=== PATIENT | male | born 1980 | race Caucasian/White ===

== ENCOUNTER 2020-11-07 09:51 | Inpatient (IN) | payer MEDICARE, OTHER ==
[~2020-11-07] VITALS: Ht 175.3 cm; Wt 117.7 kg
[2020-11-07] MEDS: SERTRALINE 100 MG TAB PO SCH (09:00)
[2020-11-07 12:22] LABS: HEMATOCRIT 46.3 % (42.0-52.0); HEMOGLOBIN 15.7 g/dl (13.5-17.5); MEAN CORPUSCULAR HEMOGLOBIN 29.2 pg (27.0-33.0); MEAN CORPUSCULAR HGB CONC 33.9 g/dl (32.0-36.5); MEAN CORPUSCULAR VOLUME 86.2 fl (80.0-96.0); PLATELET COUNT, AUTOMATED 261 10^3/uL (150-450); RED BLOOD COUNT 5.37 10^6/uL (4.30-6.10); WHITE BLOOD COUNT 9.7 10^3/uL (4.0-10.0)
[2020-11-07 12:23] LABS: AMPHETAMINES LEVEL URINE NEGATIVE (NEGATIVE); BARBITURATES URINE NEGATIVE (NEGATIVE); BENZODIAZEPINES URINE NEGATIVE (NEGATIVE); CANNABINOIDS URINE POSITIVE (NEGATIVE); COCAINE METABOLITE URINE NEGATIVE (NEGATIVE); METHADONE URINE NEGATIVE (NEGATIVE); OPIATES URINE NEGATIVE (NEGATIVE); PHENCYCLIDINE URINE NEGATIVE (NEGATIVE)
[2020-11-07 13:01] LABS: ACETAMINOPHEN LEVEL < 2.0 UG/ML (10.0-30.0); ALBUMIN 4.8 GM/DL (3.2-5.2); ALT/SGPT 37 U/L (12-78); BILIRUBIN,DIRECT 0.3 MG/DL (0.0-0.2); BILIRUBIN,TOTAL 1.1 MG/DL (0.2-1.0); BLOOD UREA NITROGEN 16 MG/DL (7-18); CALCIUM LEVEL 9.6 MG/DL (8.5-10.1); CARBON DIOXIDE LEVEL 25 MEQ/L (21-32); CHLORIDE LEVEL 107 MEQ/L (98-107); CREATININE FOR GFR 0.91 MG/DL (0.70-1.30); ETHYL ALCOHOL (ETHANOL) < 0.003 % (0.000-0.010); GLOMERULAR FILTRATION RATE > 60.0 (>60); GLUCOSE, FASTING 81 MG/DL (70-100); POTASSIUM SERUM 3.9 MEQ/L (3.5-5.1); SALICYLATE LEVEL < 1.7 MG/DL (5.0-30.0); SODIUM LEVEL 140 MEQ/L (136-145); TOTAL PROTEIN 8.8 GM/DL (6.4-8.2)
[2020-11-07] MEDS ORDERED: ZOLO100T PO (13:24)
[2020-11-07] MEDS ORDERED: D3 +TAB PO (13:24)
[2020-11-07] MEDS ORDERED: QUET50TA3 PO (13:24)
[2020-11-07] MEDS ORDERED: QUET100T2 PO (13:24)
[2020-11-07] MEDS ORDERED: MELA3TAB29 PO (13:24)
[2020-11-07] MEDS ORDERED: HYDR-3363 PO (13:24)
[2020-11-07] MEDS ORDERED: PREG200C PO (13:24)
[2020-11-07] MEDS ORDERED: DULO1CAP6 PO (13:24)
--- NOTE | 2020-11-07 13:56 | REP ---
INDICATION: puhnched all. COMPARISON: None. TECHNIQUE: Four views of the right hand are provided. FINDINGS: Four views of the right hand demonstrate normal bones, joints, and soft tissues. No fracture or subluxation is seen. No opaque foreign body noted. IMPRESSION: Negative right hand series. <Electronically signed by Prieto Dillard > 11/07/20 [id number]
[2020-11-07] MEDS ORDERED: MAALOX 30 ML SUSP *UDC PO PRN (15:30)
[2020-11-07] MEDS ORDERED: ACETAMINOPHEN TAB 650MG DOSE (2X325MG) PO PRN (15:30)
[2020-11-07] MEDS ORDERED: D31000TA2 PO (16:24)
[2020-11-07 16:43] LABS: RSV AMPLIFICATION NEGATIVE (NEGATIVE)
[2020-11-07 17:59] VITALS: BP 126/76
[2020-11-07] MEDS: PREGABALIN 100 MG CAP (LYRICA) PO SCH (20:30)
[2020-11-07] MEDS: traZODone 50 MG TAB PO PRN (20:30)
[2020-11-07] MEDS: QUEtiapine FUMARATE 50MG TAB PO SCH (20:30)
[2020-11-07] MEDS: hydrOXYzine 25 MG TAB PO SCH (20:30)
[2020-11-08 07:12] VITALS: BP 155/98
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
[2020-11-08] MEDS: SERTRALINE 100 MG TAB PO SCH (08:37)
[2020-11-08] MEDS: QUEtiapine FUMARATE 50MG TAB PO SCH ×2 (08:37→20:59)
[2020-11-08] MEDS: PREGABALIN 100 MG CAP (LYRICA) PO SCH ×3 (08:37→20:59)
[2020-11-08] MEDS: hydrOXYzine 25 MG TAB PO SCH ×3 (08:37→20:59)
[2020-11-08] MEDS: VITAMIN D 1,000 INTERNATIONAL UNITS TABLET PO SCH (08:37)
--- NOTE | 2020-11-08 12:58 | HPEPDOC ---
[facility] Medical History & Physical Date of Admission Nov 07, 2020 Date of Service: Nov 08, 2020 History and Physical MEDICAL H&P HISTORY OF PRESENT ILLNESS: Patient is a 40-year-old male with past medical history of PTSD, chronic pain, anxiety, insomnia who presented to [facility] emergency room after having delusional thoughts, visual hallucinations. He is also had a decreased sleep pattern. The patient states he has become very in tune with "time" and has been meditating a lot more. He states he has recently gotten into meditating and praying a particular type of medication that is done in [place]. He is upset with the concept of time slowing down and spoke of it frequently during our interaction. He has a history of delusions but no admissions to mental health facilities. On exam today the patient had no acute medical findings which were of concern but he did speak a lot of the concept of time slowing down and states that "people do not understand what I'm trying to tell them". He spoke of watching the sun setting and rising daily. The patient denies chest pain, shortness of breath, nausea, vomiting, fevers, chills, weight loss, suicidal or homicidal ideation, agitation, anxiety. REVIEW OF SYSTEMS: Neg except mentioned above PAST MEDICAL HISTORY: PTSD, chronic pain, anxiety, insomnia, autoimmune d/o (specific one not known) PAST SURGICAL HISTORY: appendectomy Right ORIF FAMILY HISTORY: Father: Healthy. Alive Mother: Healthy. alive SOCIAL HISTORY: Smokes medical marijuana only, denies nicotine use. Denies illicit drug or alcohol use. Currently unemployed, prior , disabled. Lives with and children. Follows with [place] for medical needs. ALLERGIES: Please see below. HOME MEDICATIONS: Please see below. PHYSICAL EXAMINATION: VS: please see below CONSTITUTIONAL: No acute distress, resting comfortably, AAO x 3 EYES: PERRLA, EOM intact HENT, MOUTH: Normocephalic, atraumatic, moist mucous membranes NECK: SUPPLE, no JVD, no lymphadenopathy, no carotid bruit CV: Regular rate and rhythm, S1S2 normal, no murmurs/rubs/gallops RESPIRATORY: Clear to auscultation bilaterally, no rales/rhonchi/wheezes GI: BS positive in 4 quadrants, soft, nontender, nondistended, no rebound or guarding, no organomegaly : Deferred MUSCULOSKELETAL: Normal ROM. No cyanosis, clubbing, swelling, joint deformity, extremity edema INTEGUMENTARY: Intact, no rashes, no lesions, no erythema NEUROLOGIC: Cranial Nerves II-XII are intact, no focal deficits PSYCHIATRIC: Mood and affect are normal LABORATORY DATA: Please see below IMAGING: None ASSESSMENT: 40 y/o M admitted to [facility] for depression, risk for suicide. PLAN: Depression, risk for suicide -Plan per psychiatry team Chronic back and hand pain 2/2 to autoimmune d/o -Stable -States he has a history of autoimmune disorders (unknown specifically by him) -Followed for pain by PCP -At this time, with us not having actual med list, will suggest c/w tylenol PRN PTSD / anxiety/ insomnia -Plan per psych DISPOSITION: Thank you kindly for this consult. At this time will sign off, as other chronic issues aside from psychiatric illness are stable. If we are needed to reassess again please feel free to call at any time. Vital Signs Vital Signs Date Time Temp Pulse Resp B/P (MAP) Pulse Ox O2 Delivery O2 Flow Rate FiO2 11/08/20 09:41 Room Air 11/08/20 07:12 96.4 121 20 155/98 (117) 99 Laboratory Data Labs 24H Laboratory Tests 2 11/07/20 15:51: Coronavirus (COVID-19)(PCR) NEGATIVE, Influenza Type A (RT-PCR) NEGATIVE, Influenza Type B (RT-PCR) NEGATIVE, Respiratory Syncytial Virus (PCR) NEGATIVE Home Medications Scheduled Cholecalciferol (Vitamin D3) (Vitamin D3) 1,000 Unit Tablet, 1,000 UNITS PO DAILY Duloxetine Hcl (Duloxetine HCl) 60 Mg Capsule.dr, 60 MG PO BID Pregabalin (Pregabalin) 200 Mg Capsule, 200 MG PO TID Quetiapine Fumarate (Quetiapine Fumarate) 50 Mg Tablet, 50 MG PO BID QAM, LUNCH Quetiapine Fumarate (Quetiapine Fumarate) 100 Mg Tablet, 100 MG PO QHS Sertraline Hcl (Zoloft) 100 Mg Tablet, 100 MG PO DAILY Scheduled PRN Hydroxyzine HCl (Hydroxyzine HCl) 25 Mg Tablet, 25 MG PO BID PRN for ANXIETY/AGITATION Melatonin (Melatonin) 3 Mg Tablet, 9 MG PO QHS PRN for SLEEP Allergies Coded Allergies: minocycline (Verified Adverse Reaction, Unknown, worsening joint pain, 11/07/20) A-FIB/CHADSVASC A-FIB History Current/History of A-Fib/PAF?: No Current PO Anticoag Therapy: No Age/Risk Factor Scoring CHADSVASC: CHADSVASC Response (Comments) Value Age Risk Factor Age < 65 years old 0 Gender Risk Factor Male 0 Hx of CHF No 0 Hx of HTN No 0 Hx of Stroke/TIA/or VTE No 0 Hx of Diabetes No 0 Hx of Vascular Disease No 0 Total 0 Treatment Treatment ordered: NONE Other anticoagulant ordered: none Merna Bejarano MD Nov 08, 2020 12:58
[2020-11-08 19:11] VITALS: BP 137/84
[2020-11-08] MEDS: traZODone 50 MG TAB PO PRN (20:59)
[2020-11-09 06:00] VITALS: BP 133/90
[2020-11-09] MEDS: PREGABALIN 100 MG CAP (LYRICA) PO SCH ×3 (08:59→21:16)
[2020-11-09] MEDS: hydrOXYzine 25 MG TAB PO SCH ×3 (09:00→21:16)
[2020-11-09] MEDS: VITAMIN D 1,000 INTERNATIONAL UNITS TABLET PO SCH (09:00)
[2020-11-09] MEDS: QUEtiapine FUMARATE 50MG TAB PO SCH (09:00)
[2020-11-09] MEDS: SERTRALINE 100 MG TAB PO SCH (09:00)
--- NOTE | 2020-11-09 10:19 | MHIPNPDOC ---
[facility] Progress Note Progress Note DATE OF SERVICE: 11/09/20 HISTORY: 40-year-old male with extensive change in behavior today tells me that time is slowing that the planets were lined up. He has been watching sunsets and sunrises. He states animals are acting weird. He states there will be a great astronomical event that we are not prepared for. He states the earth will change its rotation. He states he has watched and felt when he wants the planets. Pulses and he eats and thinks there'll be electromagnetic forces stealing her power. VITAL SIGNS: See below. NEW TEST RESULTS: None. CURRENT MEDICATIONS: See below. MENTAL STATUS EXAMINATION: Patient is a 40-year old male, who is, expressing numerous odd ideas and appare ntly has become delusional. Speech: Is, normal. Language skills are. No gross disturbance. Thought processes including: As above. Thought content: As above. Abstract reasoning, and computation: Not presently able to abstract well. Description of associations: No loose association. Description of abnormal or psychotic thoughts:. Psychotic thoughts as described above. Judgment:, Poor. Insight:, Limited. Orientation: 3. Recent and remote memory: Intact. Attention span and concentration: Disrupted by delusional thinking. Language: Intact. Fund of knowledge:. full Mood: Euthymic. Affect:, Congruent. DIAGNOSES: 1. Schizophrenia. 2., Rule out bipolar disorder with psychotic features. 3., None. ASSESSMENT: As above MANAGEMENT PLAN:, We will begin Zyprexa 10 mg. TIME SPENT: 30 minutes. Vital Signs Vital Signs Date Time Temp Pulse Resp B/P (MAP) Pulse Ox O2 Delivery O2 Flow Rate FiO2 11/09/20 08:41 Room Air 11/09/20 06:00 97.6 80 18 133/90 (104) 99 Current Medications Current Medications Medications (Trade) Dose Ordered Sig/Linwood Route PRN Reason Start Time Stop Time Status Last Admin Dose Admin Acetaminophen (Tylenol Tab) 650 mg Q6HP PRN PO HEADACHE or DISCOMFORT 11/07/20 15:30 Al Hydrox/Mg Hydrox/Simethicone (Mylanta) 30 ml Q4HP PRN PO HEARTBURN/INDIGESTION 11/07/20 15:30 Home Med (Med Rec Complete!) ASDIRECTED XX 11/07/20 16:30 11/07/20 16:39 DC Hydroxyzine HCl (Atarax) 25 mg TID PO 11/07/20 16:00 11/09/20 09:00 Magnesium Hydroxide (Milk Of Magnesia) 30 ml DAILYPRN PRN PO CONSTIPATION 11/07/20 15:30 Pregabalin (Lyrica) 200 mg TID PO 11/07/20 16:00 11/09/20 08:59 Quetiapine Fumarate (SEROquel) 50 mg QAM PO 11/08/20 09:00 11/09/20 09:00 Quetiapine Fumarate (SEROquel) 150 mg QPM PO 11/07/20 21:00 11/08/20 20:59 Sertraline HCl (Zoloft) 100 mg DAILY PO 11/07/20 09:00 11/09/20 09:00 Trazodone HCl (Desyrel) 50 mg QHSP PRN PO INSOMNIA 11/07/20 15:30 11/08/20 20:59 Vitamin D (Vitamin D) 1,000 units DAILY PO 11/08/20 09:00 11/09/20 09:00 Allergies Coded Allergies: minocycline (Verified Adverse Reaction, Unknown, worsening joint pain, 11/07/20) JAVIER CAICEDO MD Nov 09, 2020 10:19
[2020-11-09 18:03] VITALS: BP_SYST 143; BP_SYST 147; BP_DIAS 73; BP_DIAS 83
[2020-11-09] MEDS: OLANZapine 10 MG TAB PO SCH (21:16)
[2020-11-09] MEDS: traZODone 50 MG TAB PO PRN (21:16)
[2020-11-10 07:05] VITALS: BP 147/83
[2020-11-10] MEDS: SERTRALINE 100 MG TAB PO SCH (09:04)
[2020-11-10] MEDS: hydrOXYzine 25 MG TAB PO SCH ×3 (09:04→21:11)
[2020-11-10] MEDS: PREGABALIN 100 MG CAP (LYRICA) PO SCH ×3 (09:04→21:11)
[2020-11-10] MEDS: VITAMIN D 1,000 INTERNATIONAL UNITS TABLET PO SCH (09:04)
[2020-11-10] MEDS ORDERED: OLANZapine ORAL DISINTEGRATING TAB 5MG PO PRN (14:25)
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
[2020-11-10 16:23] VITALS: BP 137/94
[2020-11-10] MEDS: traZODone 50 MG TAB PO PRN (21:11)
[2020-11-10] MEDS: MOM 30ML SUSPENSION UDC PO PRN (21:11)
[2020-11-10] MEDS: OLANZapine 10 MG TAB PO SCH (21:11)
[2020-11-11 06:35] VITALS: BP 141/83
[2020-11-11] MEDS ORDERED: OLANZapine 5 MG TAB PO SCH (09:00)
[2020-11-11] MEDS: PREGABALIN 100 MG CAP (LYRICA) PO SCH ×3 (09:28→20:36)
[2020-11-11] MEDS: VITAMIN D 1,000 INTERNATIONAL UNITS TABLET PO SCH (09:28)
[2020-11-11] MEDS: hydrOXYzine 25 MG TAB PO SCH ×3 (09:28→20:36)
[2020-11-11] MEDS: SERTRALINE 100 MG TAB PO SCH (09:28)
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
[2020-11-11 16:47] VITALS: BP 134/94
[2020-11-11] MEDS: OLANZapine 10 MG TAB PO SCH (20:36)
[2020-11-11] MEDS: traZODone 50 MG TAB PO PRN (20:36)
[2020-11-12 06:33] VITALS: BP 130/85
[2020-11-12] MEDS: OLANZapine 10 MG TAB PO SCH ×2 (08:23→20:19)
[2020-11-12] MEDS: hydrOXYzine 25 MG TAB PO SCH ×3 (08:23→20:18)
[2020-11-12] MEDS: PREGABALIN 100 MG CAP (LYRICA) PO SCH ×3 (08:23→20:19)
[2020-11-12] MEDS: SERTRALINE 100 MG TAB PO SCH (08:23)
[2020-11-12] MEDS: VITAMIN D 1,000 INTERNATIONAL UNITS TABLET PO SCH (08:23)
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
[2020-11-12 16:41] VITALS: BP 131/93
[2020-11-12] MEDS: traZODone 50 MG TAB PO PRN (20:18)
[2020-11-12] MEDS ORDERED: DIVALPROEX 125 MG TAB PO ONE (21:00)
[2020-11-13 06:13] VITALS: BP 138/88
[2020-11-13] MEDS: VITAMIN D 1,000 INTERNATIONAL UNITS TABLET PO SCH (08:58)
[2020-11-13] MEDS: hydrOXYzine 25 MG TAB PO SCH ×3 (08:58→21:26)
[2020-11-13] MEDS: OLANZapine 10 MG TAB PO SCH ×2 (08:59→21:25)
[2020-11-13] MEDS: SERTRALINE 100 MG TAB PO SCH (08:59)
[2020-11-13] MEDS: PREGABALIN 100 MG CAP (LYRICA) PO SCH ×3 (08:59→21:25)
[2020-11-13 09:19] LABS: CHOLESTEROL RISK RATIO 6.171 (<5)
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
[2020-11-13 18:50] VITALS: BP 175/79
[2020-11-13] MEDS ORDERED: DIVALPROEX 250 MG TAB PO ONE (21:00)
[2020-11-13] MEDS: traZODone 50 MG TAB PO PRN (21:26)
[2020-11-14 06:00] VITALS: BP 142/87
[2020-11-14] MEDS: OLANZapine 10 MG TAB PO SCH ×2 (08:17→20:23)
[2020-11-14] MEDS: SERTRALINE 100 MG TAB PO SCH (08:17)
[2020-11-14] MEDS: DIVALPROEX 250 MG TAB PO SCH (08:17)
[2020-11-14] MEDS: hydrOXYzine 25 MG TAB PO SCH ×3 (08:17→20:22)
[2020-11-14] MEDS: PREGABALIN 100 MG CAP (LYRICA) PO SCH ×3 (08:17→20:23)
[2020-11-14] MEDS: VITAMIN D 1,000 INTERNATIONAL UNITS TABLET PO SCH (08:17)
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
[2020-11-14 16:19] VITALS: BP 140/82
[2020-11-14] MEDS: traZODone 50 MG TAB PO PRN (20:23)
[2020-11-14] MEDS: MOM 30ML SUSPENSION UDC PO PRN (20:23)
[2020-11-15 06:22] VITALS: BP 130/92
[2020-11-15] MEDS: PREGABALIN 100 MG CAP (LYRICA) PO SCH ×3 (07:55→20:41)
[2020-11-15] MEDS: VITAMIN D 1,000 INTERNATIONAL UNITS TABLET PO SCH (07:55)
[2020-11-15] MEDS: OLANZapine 10 MG TAB PO SCH ×2 (07:55→20:41)
[2020-11-15] MEDS: hydrOXYzine 25 MG TAB PO SCH ×3 (07:56→20:41)
[2020-11-15] MEDS: DIVALPROEX 250 MG TAB PO SCH (07:56)
[2020-11-15] MEDS: SERTRALINE 100 MG TAB PO SCH (07:56)
[2020-11-15 16:11] VITALS: BP 125/60
[2020-11-15] MEDS: traZODone 50 MG TAB PO PRN (20:41)
[2020-11-16 06:26] VITALS: BP 134/87
[2020-11-16] MEDS: OLANZapine 10 MG TAB PO SCH ×2 (08:09→20:23)
[2020-11-16] MEDS: SERTRALINE 100 MG TAB PO SCH (08:09)
[2020-11-16] MEDS: PREGABALIN 100 MG CAP (LYRICA) PO SCH ×3 (08:09→20:23)
[2020-11-16] MEDS: hydrOXYzine 25 MG TAB PO SCH ×3 (08:09→20:23)
[2020-11-16] MEDS: DIVALPROEX 250 MG TAB PO SCH (08:09)
[2020-11-16] MEDS: VITAMIN D 1,000 INTERNATIONAL UNITS TABLET PO SCH (08:09)
[2020-11-16] MEDS ORDERED: traZODone 100 MG TAB PO PRN (11:40)
[2020-11-16 16:18] VITALS: BP 142/86
[2020-11-17 06:33] VITALS: BP 133/82
[2020-11-17] MEDS: DIVALPROEX 250 MG TAB PO SCH (08:27)
[2020-11-17] MEDS: SERTRALINE 100 MG TAB PO SCH (08:27)
[2020-11-17] MEDS: hydrOXYzine 25 MG TAB PO SCH (08:28)
[2020-11-17] MEDS: PREGABALIN 100 MG CAP (LYRICA) PO SCH (08:28)
[2020-11-17] MEDS: OLANZapine 10 MG TAB PO SCH (08:28)
[2020-11-17] MEDS: VITAMIN D 1,000 INTERNATIONAL UNITS TABLET PO SCH (08:28)
[2020-11-17] MEDS ORDERED: OLAN10TA2 PO (09:57)
[2020-11-17] MEDS ORDERED: HYDR-3363 PO (09:57)
[2020-11-17] MEDS ORDERED: DEPA250T32 PO (09:57)
[2020-11-17] MEDS ORDERED: ZOLO100T PO (09:57)
[2020-11-17] MEDS ORDERED: TRAZ-257 PO (09:57)
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
== END 2020-11-17 13:00 | disposition home or self-care (01) | DRG 885 ==
LOC: M ED 09:51 → M ED INP 15:28 → M PSY 17:30
PROVIDERS: ADMIT Psychiatry & Neurology Child & Adolescent Psychiatry; ATTEND Psychiatry & Neurology Psychiatry
DX: F31.9 Bipolar disorder, unspecified (principal); F43.10 Post-traumatic stress disorder, unspecified; G89.29 Other chronic pain; Z79.899 Other long term (current) drug therapy; Z88.8 Allergy status to other drugs, medicaments and biological substances; G47.00 Insomnia, unspecified

== ENCOUNTER 2020-12-02 14:49 | Inpatient (IN) | payer MEDICARE, OTHER ==
[~2020-12-02] VITALS: Ht 175.3 cm; Wt 124.3 kg
[~2020-12-02 14:49] MED LIST: D3 +TAB PO; D31000TA2 PO; DEPA250T32 PO; DULO1CAP6 PO; HYDR-3363 PO; MELA3TAB29 PO; OLAN10TA2 PO; PREG200C PO; QUET100T2 PO; QUET50TA3 PO; TRAZ-257 PO; ZOLO100T PO
[2020-12-02 15:34] LABS: HEMOGLOBIN 14.5 g/dl (13.5-17.5); MEAN CORPUSCULAR HEMOGLOBIN 28.9 pg (27.0-33.0); MEAN CORPUSCULAR HGB CONC 33.7 g/dl (32.0-36.5); MEAN CORPUSCULAR VOLUME 85.7 fl (80.0-96.0); PLATELET COUNT, AUTOMATED 203 10^3/uL (150-450); RED BLOOD COUNT 5.02 10^6/uL (4.30-6.10); WHITE BLOOD COUNT 5.7 10^3/uL (4.0-10.0)
[2020-12-02 15:55] LABS: AMPHETAMINES LEVEL URINE NEGATIVE (NEGATIVE); BARBITURATES URINE NEGATIVE (NEGATIVE); BENZODIAZEPINES URINE NEGATIVE (NEGATIVE); CANNABINOIDS URINE POSITIVE (NEGATIVE); COCAINE METABOLITE URINE NEGATIVE (NEGATIVE); METHADONE URINE NEGATIVE (NEGATIVE); OPIATES URINE NEGATIVE (NEGATIVE); PHENCYCLIDINE URINE NEGATIVE (NEGATIVE)
[2020-12-02 16:12] LABS: ACETAMINOPHEN LEVEL < 2.0 UG/ML (10.0-30.0); ALBUMIN 3.8 GM/DL (3.2-5.2); ALT/SGPT 43 U/L (12-78); BILIRUBIN,DIRECT < 0.1 MG/DL (0.0-0.2); BILIRUBIN,TOTAL 0.2 MG/DL (0.2-1.0); BLOOD UREA NITROGEN 9 MG/DL (7-18); CALCIUM LEVEL 8.6 MG/DL (8.5-10.1); CARBON DIOXIDE LEVEL 27 MEQ/L (21-32); CHLORIDE LEVEL 109 MEQ/L (98-107); CREATININE FOR GFR 0.78 MG/DL (0.70-1.30); ETHYL ALCOHOL (ETHANOL) < 0.003 % (0.000-0.010); GLOMERULAR FILTRATION RATE > 60.0 (>60); GLUCOSE, FASTING 129 MG/DL (70-100); POTASSIUM SERUM 3.9 MEQ/L (3.5-5.1); SODIUM LEVEL 140 MEQ/L (136-145); TOTAL PROTEIN 7.3 GM/DL (6.4-8.2)
[2020-12-02 20:42] LABS: RSV AMPLIFICATION NEGATIVE (NEGATIVE)
[2020-12-02] MEDS ORDERED: PREGABALIN 100 MG CAP (LYRICA) PO ONE (20:50)
[2020-12-02] MEDS ORDERED: OLANZapine 10 MG TAB PO ONE (20:50)
[2020-12-02] MEDS ORDERED: ZOLO100T PO (20:55)
[2020-12-02] MEDS ORDERED: DIVA250T67 PO (20:55)
[2020-12-02] MEDS ORDERED: TRAZ-189 PO (20:55)
[2020-12-02] MEDS ORDERED: HYDR-3363 PO (20:55)
[2020-12-02] MEDS ORDERED: OLAN10TA2 PO (20:55)
[2020-12-02 21:05] LABS: VALPROIC ACID (DEPAKOTE) 16.4 UG/ML (50.0-100.0)
[2020-12-03] MEDS ORDERED: OLANZapine 10 MG TAB PO SCH (09:00)
[2020-12-03] MEDS ORDERED: DIVALPROEX 250 MG TAB PO SCH (09:00)
[2020-12-03] MEDS ORDERED: SERTRALINE 100 MG TAB PO SCH (09:00)
[2020-12-03] MEDS ORDERED: PREGABALIN 100 MG CAP (LYRICA) PO SCH (09:00)
--- NOTE | 2020-12-03 13:16 | ECGEPIP ---
[facility] - ED Test Date: 2020-12-02 Pat Name: SIMONE VALENZUELA Department: Room: - Gender: Male Hospital Director: ame : 1980 Requested By: SOHAIL Rai Order Number: [id number] Reading MD: Jasmina López Measurements Intervals [place] Rate: 68 P: 30 TN: 128 QRS: 13 QRSD: 92 T: 24 QT: 378 QTc: 401 Interpretive Statements Normal sinus rhythm No prior Electronically Signed on 12-03-2020 13:16:23 EDT by Jasmina López
[2020-12-03] MEDS ORDERED: traZODone 100 MG TAB PO PRN (17:35)
[2020-12-03] MEDS ORDERED: MOM 30ML SUSPENSION UDC PO PRN (17:35)
[2020-12-03] MEDS ORDERED: MAALOX 30 ML SUSP *UDC PO PRN (17:35)
[2020-12-03] MEDS ORDERED: hydrOXYzine 25 MG TAB PO PRN (17:35)
[2020-12-03] MEDS: OLANZapine 10 MG TAB PO SCH (22:00)
[2020-12-03] MEDS: PREGABALIN 100 MG CAP (LYRICA) PO SCH (22:00)
[2020-12-04] MEDS: VITAMIN D 1,000 INTERNATIONAL UNITS TABLET PO SCH (10:04)
[2020-12-04] MEDS: OLANZapine 10 MG TAB PO SCH ×2 (10:05→21:57)
[2020-12-04] MEDS: SERTRALINE 100 MG TAB PO SCH (10:05)
[2020-12-04] MEDS: PREGABALIN 100 MG CAP (LYRICA) PO SCH ×3 (10:05→21:57)
[2020-12-04] MEDS: DIVALPROEX 250 MG TAB PO SCH (10:06)
--- NOTE | 2020-12-04 14:12 | HPEPDOC ---
[facility] Medical History & Physical Date of Admission Dec 03, 2020 Date of Service: Dec 04, 2020 History and Physical Chief complaint: Who presented to the emergency room with suicidal thoughts History of present illness: Patient 40-year-old male with past medical history of chronic back pain presents to the emergency room with complaints of suicidal thoughts. Patient was admitted to the inpatient mental health unit under the care of psychiatry. Hospitalist service was consulted for medical screening evaluation. Patient reports a mild headache. Denies any nausea, vomiting, chest pain, shortness of breath, palpitations. Does report a mild cough. Denies any abdominal pain consultation, diarrhea, or discomfort. He has not experienced any recent fevers or chills. Patient reports that his weight is fluctuating reports that his appetite is relatively normal. Past Medical History: Chronic back pain COVID19 infection Past Surgical History: Right wrist surgery Right ankle surgery Appendectomy Allergies: See below Medications: See below Family History: - No history of malignancies Social History: - Denies the use of tobacco; reports the social use of alcohol; occasionally uses marijuana - Denies recent travel or sick contacts - Lives with - Occupation; unemployed Review of Systems: 10 point review of systems complete, all negative otherwise stated in HPI Physical exam: - Vitals: BP [155/107], HR [68], RR [16], Sat [100%RA], Temp [97.4F] - General: Sitting up in bed, No acute distress, Speaking in full sentences, AAOx3 - HEENT: NC, AT, PERRLA, EOMI - CVS: RRR, +S1S2 - Lungs: Fair air entry bilaterally, No appreciable wheezing / rales / rhonchi - Abdomen: Soft, Non-distended, Non-tender - Extremities: No lower extremity edema, No calf tenderness - Neuro: No focal motor or sensory deficit - Skin: No visible rashes Labs: See below Imaging: See below EKG: See below Assessment and Plan: Suicidal thoughts - History of bipolar disorder, anxiety, depression - Patient has been admitted to the inpatient mental health unit under the care of psychiatry - Currently being managed by psychiatry COVID19 infection - Patient is currently asymptomatic other than a very mild non-productive cough - Continue with supportive care Chronic back pain - c/w Tylenol when necessary DVT prophylaxis - Will c/w early ambulation Thank you for this consultation. Hospitalist service will now sign off. Please reconsult as needed Vital Signs Vital Signs Date Time Temp Pulse Resp B/P (MAP) Pulse Ox O2 Delivery O2 Flow Rate FiO2 12/04/20 09:30 Room Air 12/03/20 19:02 12/03/20 19:02 97.4 68 16 100 Home Medications Scheduled Cholecalciferol (Vitamin D3) (Vitamin D3) 1,000 Unit Tablet, 1,000 UNITS PO DAILY Divalproex Sodium (Divalproex Sodium) 250 Mg Tablet.dr, 250 MG PO DAILY Olanzapine (Olanzapine) 10 Mg Tablet, 10 MG PO BID Pregabalin (Pregabalin) 200 Mg Capsule, 200 MG PO TID Sertraline Hcl (Zoloft) 100 Mg Tablet, 100 MG PO DAILY Scheduled PRN Hydroxyzine HCl (Hydroxyzine HCl) 25 Mg Tablet, 25 MG PO BID PRN for ANXIETY/AGITATION Trazodone HCl (Trazodone HCl) 100 Mg Tablet, 100 MG PO QHS PRN for SLEEP Allergies Coded Allergies: minocycline (Verified Adverse Reaction, Unknown, worsening joint pain, 11/07/20) ENZO BAKER MD Dec 04, 2020 14:12
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
[2020-12-04 16:30] VITALS: BP 135/77
[2020-12-04] MEDS: traZODone 100 MG TAB PO PRN (21:57)
[2020-12-05] MEDS: VITAMIN D 1,000 INTERNATIONAL UNITS TABLET PO SCH (09:11)
[2020-12-05] MEDS: SERTRALINE 100 MG TAB PO SCH (09:11)
[2020-12-05] MEDS: OLANZapine 10 MG TAB PO SCH (09:11)
[2020-12-05] MEDS: PREGABALIN 100 MG CAP (LYRICA) PO SCH ×3 (09:11→21:17)
[2020-12-05] MEDS: DIVALPROEX 250 MG TAB PO SCH ×2 (09:11→21:16)
--- NOTE | 2020-12-05 17:54 | MHIPN ---
PROGRESS NOTE DATE: 12/05/2020 SUBJECTIVE: I am fine, I still have some hallucinations which is somewhat like auditory hallucinations, sporadically, but not all the time, not depressed. OBJECTIVE: 40-year-old man living with his and children was admitted because of suicidal thoughts. The patient was diagnosed with COVID 19 infection in the hospital. His was suffering from COVID initially. The patient was thinking of hanging himself, but he did not do it because he was afraid. The patient has a long history of mental illness. He was admitted to [facility] twice in July. He has a history of psychosis, delusions and hallucinations. The patient has also been diagnosed with obsessive compulsive disorder, bipolar disorder and posttraumatic stress disorder. Currently, he is cooperative. He is in isolation room. MENTAL STATUS EXAMINATION: Causally dressed, cooperative, made good eye contact. Psychomotor activity is normal. Mood is mildly depressed. Effect is anxious. Denies suicidal or homicidal ideas. However, he admitted to have some sporadic auditory hallucinations. Insight and judgment are fair. DIAGNOSIS: 1. Mood disorder, rule out bipolar I disorder with psychotic features. 2. Obsessive compulsive disorder. 3. Posttraumatic stress disorder. 4. Cannabis use disorder PLAN: Increase his Zyprexa to 10 mg in the a.m. and 15 mg at night. Increase his sertraline to 150 mg once daily and increase Depakote 250 mg twice a day. Vital signs: Temperature 98.3, pulse is 118, res1 16, blood pressure 135/77. Laboratory: Complete blood count (CBC) is within normal limits. Comprehensive metabolic panel (CMP) within normal limits. Toxicology is positive for cannabis. Estimated length of stay 4 to 5 days. Time spent on the patient is 30 minutes.
[2020-12-05] MEDS ORDERED: OLANZapine 5 MG TAB PO SCH (21:00)
[2020-12-06] MEDS: traZODone 100 MG TAB PO PRN ×2 (00:02→22:45)
[2020-12-06 07:59] VITALS: BP 152/89
[2020-12-06] MEDS: OLANZapine 10 MG TAB PO SCH (09:23)
[2020-12-06] MEDS: DIVALPROEX 250 MG TAB PO SCH ×2 (09:23→22:37)
[2020-12-06] MEDS: PREGABALIN 100 MG CAP (LYRICA) PO SCH ×3 (09:23→22:37)
[2020-12-06] MEDS: VITAMIN D 1,000 INTERNATIONAL UNITS TABLET PO SCH (09:24)
[2020-12-06] MEDS: SERTRALINE HCL 50 MG TAB PO SCH (09:24)
--- NOTE | 2020-12-06 14:34 | MHIPNPDOC ---
[facility] Progress Note Progress Note DATE OF SERVICE: 12/06/20 SUBJECTIVE: I am fine, I still have some hallucinations which is somewhat like auditory hallucinations, sporadically, but not all the time, not depressed. OBJECTIVE: 40-year-old man living with his and children was admitted because of suicidal thoughts. The patient was diagnosed with COVID 19 infection in the hospital. His was suffering from COVID initially. The patient was thinking of hanging himself, but he did not do it because he was afraid. The patient has a long history of mental illness. He was admitted to [facility] twice in July. He has a history of psychosis, delusions and hallucinations. The patient has also been diagnosed with obsessive compulsive disorder, bipolar disorder and posttraumatic stress disorder. Currently, he is cooperative. He is in isolation room. Pt continues to have some delusions . Talks about astronomy , dooms day whiich is of recent onset few months duration.and zyprexa has not helped him. MENTAL STATUS EXAMINATION: Causally dressed, cooperative, made good eye contact. Psychomotor activity is normal. Mood is mildly depressed. Effect is anxious. Denies suicidal or homicidal ideas. However, he admitted to have some sporadic auditory hallucinations. Insight and judgment are fair. DIAGNOSIS: 1. Mood disorder, rule out bipolar I disorder with psychotic features. 2. Obsessive compulsive disorder. 3. Posttraumatic stress disorder. 4. Cannabis use disorder PLAN: . Increase his sertraline to 150 mg once daily and increase Depakote 250 mg twice a day. Add Risperdal 1 mg hs and titrate, taper Zyprexa . Laboratory: Complete blood count (CBC) is within normal limits. Comprehensive metabolic panel (CMP) within normal limits. Toxicology is positive for cannabis. Estimated length of stay 4 to 5 days. Time spent on the patient is 30 minutes. Vital Signs Vital Signs Date Time Temp Pulse Resp B/P (MAP) Pulse Ox O2 Delivery O2 Flow Rate FiO2 12/06/20 07:59 98.8 82 20 152/89 (110) 96 Room Air Current Medications Current Medications Medications (Trade) Dose Ordered Sig/Linwood Route PRN Reason Start Time Stop Time Status Last Admin Dose Admin Acetaminophen (Tylenol Tab) 650 mg Q6HP PRN PO HEADACHE or DISCOMFORT 12/03/20 17:35 Al Hydrox/Mg Hydrox/Simethicone (Mylanta) 30 ml Q4HP PRN PO HEARTBURN/INDIGESTION 12/03/20 17:35 Divalproex Sodium (Depakote) 250 mg BID PO 12/05/20 21:00 12/06/20 09:23 Divalproex Sodium (Depakote) 250 mg DAILY PO 12/03/20 09:00 12/03/20 17:41 DC 12/03/20 08:58 Divalproex Sodium (Depakote) 250 mg DAILY PO 12/04/20 09:00 12/05/20 12:47 DC 12/05/20 09:11 Home Med (Med Rec Complete!) ASDIRECTED XX 12/02/20 21:00 12/02/20 20:59 DC Hydroxyzine HCl (Atarax) 25 mg BID PRN PO ANXIETY/AGITATION 12/03/20 17:35 Hydroxyzine HCl (Atarax) 25 mg BIDP PRN PO ANXIETY/AGITATION 12/03/20 17:35 12/03/20 17:47 DC Magnesium Hydroxide (Milk Of Magnesia) 30 ml DAILYPRN PRN PO CONSTIPATION 12/03/20 17:35 Olanzapine (ZyPREXA) 10 mg BID PO 12/03/20 09:00 12/03/20 17:41 DC 12/03/20 08:57 Olanzapine (ZyPREXA) 10 mg BID PO 12/03/20 21:00 12/05/20 13:54 DC 12/05/20 09:11 Olanzapine (ZyPREXA) 10 mg QAM PO 12/06/20 09:00 12/06/20 09:23 Olanzapine (ZyPREXA) 15 mg QHS PO 12/05/20 21:00 12/06/20 14:22 DC 12/05/20 21:17 Pregabalin (Lyrica) 200 mg TID PO 12/03/20 09:00 12/03/20 17:41 DC 12/03/20 08:57 Pregabalin (Lyrica) 200 mg TID PO 12/03/20 21:00 12/06/20 09:23 Risperidone (RisperDAL) 1 mg QHS PO 12/06/20 21:00 UNV Sertraline HCl (Zoloft) 100 mg DAILY PO 12/03/20 09:00 12/03/20 17:41 DC 12/03/20 08:57 Sertraline HCl (Zoloft) 100 mg DAILY PO 12/04/20 09:00 12/05/20 12:49 DC 12/05/20 09:11 Sertraline HCl (Zoloft) 150 mg DAILY PO 12/06/20 09:00 12/06/20 09:24 Trazodone HCl (Desyrel) 100 mg QHS PRN PO SLEEP 12/03/20 17:35 12/06/20 00:02 Trazodone HCl (Desyrel) 100 mg QHSP PRN PO INSOMNIA 12/03/20 17:35 12/03/20 17:47 DC Vitamin D (Vitamin D) 1,000 units DAILY PO 12/04/20 09:00 12/06/20 09:24 Allergies Coded Allergies: minocycline (Verified Adverse Reaction, Unknown, worsening joint pain, 11/07/20) PATRICIA GONZALEZ MD Dec 06, 2020 14:34
[2020-12-06] MEDS ORDERED: risperiDONE 1 MG TAB PO SCH (21:00)
[2020-12-07 06:51] VITALS: BP 138/98
[2020-12-07] MEDS: VITAMIN D 1,000 INTERNATIONAL UNITS TABLET PO SCH (09:55)
[2020-12-07] MEDS: OLANZapine 10 MG TAB PO SCH (09:56)
[2020-12-07] MEDS: SERTRALINE HCL 50 MG TAB PO SCH (09:56)
[2020-12-07] MEDS: DIVALPROEX 250 MG TAB PO SCH ×2 (09:57→21:26)
[2020-12-07] MEDS: PREGABALIN 100 MG CAP (LYRICA) PO SCH ×3 (09:57→21:26)
--- NOTE | 2020-12-07 12:14 | MHIPNPDOC ---
[facility] Progress Note Progress Note DATE OF SERVICE: 12/07/20 SUBJECTIVE: I am fine, my intrusive thoughts are less ,continues to have some delusions of time and space. OBJECTIVE: 40-year-old man living with his and children was admitted because of suicidal thoughts. The patient was diagnosed with COVID 19 infection in the hospital. His was suffering from COVID initially. The patient was thinking of hanging himself, but he did not do it because he was afraid. The patient has a long history of mental illness. He was admitted to [facility] twice in July. He has a history of psychosis, delusions and hallucinations. The patient has also been diagnosed with obsessive compulsive disorder, bipolar disorder and posttraumatic stress disorder. Currently, he is cooperative. He is in isolation room. Pt continues to have some delusions . Talks about astronomy , dooms day which is of recent onset few months duration.and Zyprexa has not helped him.Den ies any side effect from medications MENTAL STATUS EXAMINATION: Causally dressed, cooperative, made good eye contact. Psychomotor activity is normal. Mood is mildly depressed. Effect is anxious. Denies suicidal or homicidal ideas. However, he admitted to have some sporadic auditory hallucinations. Insight and judgment are fair. DIAGNOSIS: 1. Mood disorder, rule out bipolar I disorder with psychotic features. 2. Obsessive compulsive disorder. 3. Posttraumatic stress disorder. 4. Cannabis use disorder PLAN: . Increase his sertraline to 150 mg once daily and increase Depakote 250 mg twice a day. Increase Risperdal 2mg HS, and titrate, taper Zyprexa . Laboratory: Complete blood count (CBC) is within normal limits. Comprehensive metabolic panel (CMP) within normal limits. Toxicology is positive for cannabis. Estimated length of stay 4 to 5 days. Time spent on the patient is 30 minutes. Vital Signs Vital Signs Date Time Temp Pulse Resp B/P (MAP) Pulse Ox O2 Delivery O2 Flow Rate FiO2 12/07/20 06:51 97.1 96 20 138/98 (111) 94 Room Air Current Medications Current Medications Medications (Trade) Dose Ordered Sig/[place]wood Route PRN Reason Start Time Stop Time Status Last Admin Dose Admin Acetaminophen (Tylenol Tab) 650 mg Q6HP PRN PO HEADACHE or DISCOMFORT 12/03/20 17:35 Al Hydrox/Mg Hydrox/Simethicone (Mylanta) 30 ml Q4HP PRN PO HEARTBURN/INDIGESTION 12/03/20 17:35 Divalproex Sodium (Depakote) 250 mg BID PO 12/05/20 21:00 12/07/20 09:57 Divalproex Sodium (Depakote) 250 mg DAILY PO 12/03/20 09:00 12/03/20 17:41 DC 12/03/20 08:58 Divalproex Sodium (Depakote) 250 mg DAILY PO 12/04/20 09:00 12/05/20 12:47 DC 12/05/20 09:11 Home Med (Med Rec Complete!) ASDIRECTED XX 12/02/20 21:00 12/02/20 20:59 DC Hydroxyzine HCl (Atarax) 25 mg BID PRN PO ANXIETY/AGITATION 12/03/20 17:35 Hydroxyzine HCl (Atarax) 25 mg BIDP PRN PO ANXIETY/AGITATION 12/03/20 17:35 12/03/20 17:47 DC Magnesium Hydroxide (Milk Of Magnesia) 30 ml DAILYPRN PRN PO CONSTIPATION 12/03/20 17:35 Olanzapine (ZyPREXA) 10 mg BID PO 12/03/20 09:00 12/03/20 17:41 DC 12/03/20 08:57 Olanzapine (ZyPREXA) 10 mg BID PO 12/03/20 21:00 12/05/20 13:54 DC 12/05/20 09:11 Olanzapine (ZyPREXA) 10 mg QAM PO 12/06/20 09:00 12/07/20 09:56 Olanzapine (ZyPREXA) 15 mg QHS PO 12/05/20 21:00 12/06/20 14:22 DC 12/05/20 21:17 Pregabalin (Lyrica) 200 mg TID PO 12/03/20 09:00 12/03/20 17:41 DC 12/03/20 08:57 Pregabalin (Lyrica) 200 mg TID PO 12/03/20 21:00 12/07/20 09:57 Risperidone (RisperDAL) 1 mg QHS PO 12/06/20 21:00 12/06/20 22:36 Sertraline HCl (Zoloft) 100 mg DAILY PO 12/03/20 09:00 12/03/20 17:41 DC 12/03/20 08:57 Sertraline HCl (Zoloft) 100 mg DAILY PO 12/04/20 09:00 12/05/20 12:49 DC 12/05/20 09:11 Sertraline HCl (Zoloft) 150 mg DAILY PO 12/06/20 09:00 12/07/20 09:56 Trazodone HCl (Desyrel) 100 mg QHS PRN PO SLEEP 12/03/20 17:35 12/06/20 22:45 Trazodone HCl (Desyrel) 100 mg QHSP PRN PO INSOMNIA 12/03/20 17:35 12/03/20 17:47 DC Vitamin D (Vitamin D) 1,000 units DAILY PO 12/04/20 09:00 12/07/20 09:55 Allergies Coded Allergies: minocycline (Verified Adverse Reaction, Unknown, worsening joint pain, 11/07/20) PATRICIA GONZALEZ MD Dec 07, 2020 12:14
[2020-12-07] MEDS: ACETAMINOPHEN TAB 650MG DOSE (2X325MG) PO PRN (17:32)
[2020-12-07] MEDS: risperiDONE 2 MG TAB PO SCH (21:29)
[2020-12-07] MEDS: hydrOXYzine 25 MG TAB PO PRN (23:30)
[2020-12-07] MEDS: traZODone 100 MG TAB PO PRN (23:30)
[2020-12-08] MEDS: PREGABALIN 100 MG CAP (LYRICA) PO SCH ×3 (08:50→21:35)
[2020-12-08] MEDS: OLANZapine 10 MG TAB PO SCH (08:50)
[2020-12-08] MEDS: VITAMIN D 1,000 INTERNATIONAL UNITS TABLET PO SCH (08:50)
[2020-12-08] MEDS: SERTRALINE HCL 50 MG TAB PO SCH (08:50)
[2020-12-08] MEDS: DIVALPROEX 250 MG TAB PO SCH ×2 (08:50→21:35)
[2020-12-08] MEDS: ACETAMINOPHEN TAB 650MG DOSE (2X325MG) PO PRN ×2 (09:01→16:45)
[2020-12-08 16:00] VITALS: BP 130/90
--- NOTE | 2020-12-08 16:33 | MHIPNPDOC ---
[facility] Progress Note Progress Note DATE OF SERVICE: 12/08/20 SUBJECTIVE: I am fine, my intrusive thoughts are less ,continues to have some delusions of time and space. Reports thoughts about time and space have been always there. OBJECTIVE: 40-year-old man living with his and children was admitted because of suicidal thoughts. The patient was diagnosed with COVID 19 infection in the hospital. His was suffering from COVID initially. The patient was thinking of hanging himself, but he did not do it because he was afraid. The patient has a long history of mental illness. He was admitted to [facility] twice in July. He has a history of psychosis, delusions and hallucinations. The patient has also been diagnosed with obsessive compulsive disorder, bipolar disorder and posttraumatic stress disorder. Currently, he is cooperative. He is in isolation room. Pt continues to have some delusions . Talks about astronomy , dooms day which is of recent onset few months duration.and Zyprexa has not helped him.Denies any side effect from medications MENTAL STATUS EXAMINATION: Causally dressed, cooperative, made good eye contact. Psychomotor activity is normal. Mood is mildly depressed. Effect is anxious. Denies suicidal or homicidal ideas. However, he admitted to have some sporadic auditory hallucinations. Insight and judgment are fair. DIAGNOSIS: 1. Mood disorder, rule out bipolar I disorder with psychotic features. 2. Obsessive compulsive disorder. 3. Posttraumatic stress disorder. 4. Cannabis use disorder PLAN: . Increase his sertraline to 200 mg once daily and continue Depakote 250 mg twice a day. Continue Risperdal 2mg HS, and titrate, taper Zyprexa . Laboratory: Complete blood count (CBC) is within normal limits. Comprehensive metabolic panel (CMP) within normal limits. Toxicology is positive for cannabis. Estimated length of stay 4 to 5 days. Time spent on the patient is 30 minutes. Vital Signs Vital Signs Date Time Temp Pulse Resp B/P (MAP) Pulse Ox O2 Delivery O2 Flow Rate FiO2 12/07/20 06:51 97.1 96 20 138/98 (111) 94 Room Air Current Medications Current Medications Medications (Trade) Dose Ordered Sig/Linwood Route PRN Reason Start Time Stop Time Status Last Admin Dose Admin Acetaminophen (Tylenol Tab) 650 mg Q6HP PRN PO HEADACHE or DISCOMFORT 12/03/20 17:35 12/08/20 09:01 Al Hydrox/Mg Hydrox/Simethicone (Mylanta) 30 ml Q4HP PRN PO HEARTBURN/INDIGESTION 12/03/20 17:35 Divalproex Sodium (Depakote) 250 mg BID PO 12/05/20 21:00 12/08/20 08:50 Divalproex Sodium (Depakote) 250 mg DAILY PO 12/03/20 09:00 12/03/20 17:41 DC 12/03/20 08:58 Divalproex Sodium (Depakote) 250 mg DAILY PO 12/04/20 09:00 12/05/20 12:47 DC 12/05/20 09:11 Home Med (Med Rec Complete!) ASDIRECTED XX 12/02/20 21:00 12/02/20 20:59 DC Hydroxyzine HCl (Atarax) 25 mg BID PRN PO ANXIETY/AGITATION 12/03/20 17:35 12/07/20 23:30 Hydroxyzine HCl (Atarax) 25 mg BIDP PRN PO ANXIETY/AGITATION 12/03/20 17:35 12/03/20 17:47 DC Magnesium Hydroxide (Milk Of Magnesia) 30 ml DAILYPRN PRN PO CONSTIPATION 12/03/20 17:35 Miscellaneous (Unresolved Clarification Entry) SEE LABEL COMMENTS DAILY XX 12/08/20 09:00 Olanzapine (ZyPREXA) 10 mg BID PO 12/03/20 09:00 12/03/20 17:41 DC 12/03/20 08:57 Olanzapine (ZyPREXA) 10 mg BID PO 12/03/20 21:00 12/05/20 13:54 DC 12/05/20 09:11 Olanzapine (ZyPREXA) 10 mg QAM PO 12/06/20 09:00 12/08/20 08:50 Olanzapine (ZyPREXA) 15 mg QHS PO 12/05/20 21:00 12/06/20 14:22 DC 12/05/20 21:17 Pregabalin (Lyrica) 200 mg TID PO 12/03/20 09:00 12/03/20 17:41 DC 12/03/20 08:57 Pregabalin (Lyrica) 200 mg TID PO 12/03/20 21:00 12/08/20 08:50 Risperidone (RisperDAL) 1 mg QHS PO 12/06/20 21:00 12/07/20 12:15 DC 12/06/20 22:36 Risperidone (RisperDAL) 2 mg QHS PO 12/07/20 21:00 12/07/20 21:29 Sertraline HCl (Zoloft) 100 mg DAILY PO 12/03/20 09:00 12/03/20 17:41 DC 12/03/20 08:57 Sertraline HCl (Zoloft) 100 mg DAILY PO 12/04/20 09:00 12/05/20 12:49 DC 12/05/20 09:11 Sertraline HCl (Zoloft) 150 mg DAILY PO 12/06/20 09:00 12/08/20 08:50 Trazodone HCl (Desyrel) 100 mg QHS PRN PO SLEEP 12/03/20 17:35 12/07/20 23:30 Trazodone HCl (Desyrel) 100 mg QHSP PRN PO INSOMNIA 12/03/20 17:35 12/03/20 17:47 DC Vitamin D (Vitamin D) 1,000 units DAILY PO 12/04/20 09:00 12/08/20 08:50 Allergies Coded Allergies: minocycline (Verified Adverse Reaction, Unknown, worsening joint pain, 11/07/20) PATRICIA GONZALEZ MD Dec 08, 2020 16:33
[2020-12-08] MEDS: risperiDONE 2 MG TAB PO SCH (21:35)
[2020-12-08] MEDS: traZODone 100 MG TAB PO PRN (21:35)
[2020-12-08] MEDS: hydrOXYzine 25 MG TAB PO PRN (21:35)
[2020-12-09] MEDS: PREGABALIN 100 MG CAP (LYRICA) PO SCH ×3 (08:12→21:18)
[2020-12-09] MEDS: OLANZapine 10 MG TAB PO SCH (08:12)
[2020-12-09] MEDS: VITAMIN D 1,000 INTERNATIONAL UNITS TABLET PO SCH (08:12)
[2020-12-09] MEDS: SERTRALINE HCL 50 MG TAB PO SCH (08:12)
[2020-12-09] MEDS: DIVALPROEX 250 MG TAB PO SCH ×3 (08:13→21:18)
[2020-12-09] MEDS: ACETAMINOPHEN TAB 650MG DOSE (2X325MG) PO PRN ×2 (08:25→16:30)
[2020-12-09] MEDS ORDERED: BENZTROPINE 0.5 MG TAB PO ONE (13:50)
--- NOTE | 2020-12-09 13:59 | MHIPNPDOC ---
[facility] Progress Note Progress Note DATE OF SERVICE: 12/09/20 SUBJECTIVE: I am fine, my intrusive thoughts are less ,continues to have some delusions of time and space. Reports thoughts about time and space have been always there. Wants to be discharged. OBJECTIVE: 40-year-old man living with his and children was admitted because of suicidal thoughts. The patient was diagnosed with COVID 19 infection in the hospital. His was suffering from COVID initially. The patient was thinking of hanging himself, but he did not do it because he was afraid. The patient has a long history of mental illness. He was admitted to [facility] twice in July. He has a history of psychosis, delusions and hallucinations. The patient has also been diagnosed with obsessive compulsive disorder, bipolar disorder and posttraumatic stress disorder. Currently, he is cooperative. He is in isolation room. Pt continues to have some delusions . Talks about astronomy , dooms day which is of recent onset few months duration.and Zyprexa has not helped him.Denies any side effect from medications PT still depressed,and delusional.PT C/O RT SHOULDER PAIN and neck pain, R/O dystonic reaction MENTAL STATUS EXAMINATION: Causally dressed, cooperative, made good eye contact. Psychomotor activity is normal. Mood is mildly depressed. Effect is anxious. Denies suicidal or homicidal ideas. However, he admitted to have some sporadic auditory hallucinations. Insight and judgment are fair. DIAGNOSIS: 1. Mood disorder, rule out bipolar I disorder with psychotic features. 2. Obsessive compulsive disorder. 3. Posttraumatic stress disorder. 4. Cannabis use disorder PLAN: . Increase his sertraline to 200 mg once daily and continue Depakote 250 mg twice a day. Continue Risperdal 2mg HS, and titrate, D/C Zyprexa Add Cogentin 1mg bid. Laboratory: Complete blood count (CBC) is within normal limits. Comprehensive metabolic panel (CMP) within normal limits. Toxicology is positive for cannabis. Estimated length of stay 4 to 5 days. Time spent on the patient is 25 minutes. Vital Signs Vital Signs Date Time Temp Pulse Resp B/P (MAP) Pulse Ox O2 Delivery O2 Flow Rate FiO2 12/08/20 16:00 99.5 80 16 130/90 (103) 12/07/20 06:51 94 Room Air Current Medications Current Medications Medications (Trade) Dose Ordered Sig/Linwood Route PRN Reason Start Time Stop Time Status Last Admin Dose Admin Acetaminophen (Tylenol Tab) 650 mg Q6HP PRN PO HEADACHE or DISCOMFORT 12/03/20 17:35 12/09/20 08:25 Al Hydrox/Mg Hydrox/Simethicone (Mylanta) 30 ml Q4HP PRN PO HEARTBURN/INDIGESTION 12/03/20 17:35 Benztropine Mesylate (Cogentin) 1 mg BID PO 12/09/20 21:00 UNV Divalproex Sodium (Depakote) 250 mg BID PO 12/05/20 21:00 12/09/20 13:46 DC 12/09/20 08:13 Divalproex Sodium (Depakote) 250 mg DAILY PO 12/03/20 09:00 12/03/20 17:41 DC 12/03/20 08:58 Divalproex Sodium (Depakote) 250 mg DAILY PO 12/04/20 09:00 12/05/20 12:47 DC 12/05/20 09:11 Divalproex Sodium (Depakote) 250 mg TID PO 12/09/20 16:00 UNV Home Med (Med Rec Complete!) ASDIRECTED XX 12/02/20 21:00 12/02/20 20:59 DC Hydroxyzine HCl (Atarax) 25 mg BID PRN PO ANXIETY/AGITATION 12/03/20 17:35 12/08/20 21:35 Hydroxyzine HCl (Atarax) 25 mg BIDP PRN PO ANXIETY/AGITATION 12/03/20 17:35 12/03/20 17:47 DC Magnesium Hydroxide (Milk Of Magnesia) 30 ml DAILYPRN PRN PO CONSTIPATION 12/03/20 17:35 Miscellaneous (Unresolved Clarification Entry) SEE LABEL COMMENTS DAILY XX 12/08/20 09:00 12/08/20 16:32 DC Olanzapine (ZyPREXA) 10 mg BID PO 12/03/20 09:00 12/03/20 17:41 DC 12/03/20 08:57 Olanzapine (ZyPREXA) 10 mg BID PO 12/03/20 21:00 12/05/20 13:54 DC 12/05/20 09:11 Olanzapine (ZyPREXA) 10 mg QAM PO 12/06/20 09:00 12/09/20 08:12 Olanzapine (ZyPREXA) 15 mg QHS PO 12/05/20 21:00 12/06/20 14:22 DC 12/05/20 21:17 Pregabalin (Lyrica) 200 mg TID PO 12/03/20 09:00 12/03/20 17:41 DC 12/03/20 08:57 Pregabalin (Lyrica) 200 mg TID PO 12/03/20 21:00 12/09/20 08:12 Risperidone (RisperDAL) 1 mg QHS PO 12/06/20 21:00 12/07/20 12:15 DC 12/06/20 22:36 Risperidone (RisperDAL) 2 mg QHS PO 12/07/20 21:00 12/08/20 21:35 Sertraline HCl (Zoloft) 100 mg DAILY PO 12/03/20 09:00 12/03/20 17:41 DC 12/03/20 08:57 Sertraline HCl (Zoloft) 100 mg DAILY PO 12/04/20 09:00 12/05/20 12:49 DC 12/05/20 09:11 Sertraline HCl (Zoloft) 150 mg DAILY PO 12/06/20 09:00 12/08/20 16:27 DC 12/08/20 08:50 Sertraline HCl (Zoloft) 200 mg DAILY PO 12/09/20 09:00 12/09/20 08:12 Trazodone HCl (Desyrel) 100 mg QHS PRN PO SLEEP 12/03/20 17:35 12/08/20 21:35 Trazodone HCl (Desyrel) 100 mg QHSP PRN PO INSOMNIA 12/03/20 17:35 12/03/20 17:47 DC Vitamin D (Vitamin D) 1,000 units DAILY PO 12/04/20 09:00 12/09/20 08:12 Allergies Coded Allergies: minocycline (Verified Adverse Reaction, Unknown, worsening joint pain, 11/07/20) PATRICIA GONZALEZ MD Dec 09, 2020 13:59
[2020-12-09 16:51] VITALS: BP_SYST 133; BP_SYST 134; BP_DIAS 74
[2020-12-09] MEDS: BENZTROPINE 1 MG TAB PO SCH (21:18)
[2020-12-09] MEDS: hydrOXYzine 25 MG TAB PO PRN (21:18)
[2020-12-09] MEDS: risperiDONE 2 MG TAB PO SCH (21:18)
[2020-12-09] MEDS: traZODone 100 MG TAB PO PRN (21:18)
[2020-12-10] MEDS: VITAMIN D 1,000 INTERNATIONAL UNITS TABLET PO SCH (09:27)
[2020-12-10] MEDS: OLANZapine 10 MG TAB PO SCH (09:27)
[2020-12-10] MEDS: SERTRALINE HCL 50 MG TAB PO SCH (09:27)
[2020-12-10] MEDS: BENZTROPINE 1 MG TAB PO SCH (09:27)
[2020-12-10] MEDS: PREGABALIN 100 MG CAP (LYRICA) PO SCH ×3 (09:27→20:34)
[2020-12-10] MEDS: DIVALPROEX 250 MG TAB PO SCH ×3 (09:28→20:35)
[2020-12-10] MEDS: ACETAMINOPHEN TAB 650MG DOSE (2X325MG) PO PRN ×2 (09:28→16:17)
[2020-12-10 16:35] VITALS: BP 130/88
--- NOTE | 2020-12-10 16:44 | MHIPNPDOC ---
[facility] Progress Note Progress Note DATE OF SERVICE: 12/10/20 SUBJECTIVE: I am fine, my intrusive thoughts are more ,continues to have some delusions of time and space. Reports thoughts about time and space have been always there. Wants to be discharged. I have pain in my back. OBJECTIVE: 40-year-old man living with his and children was admitted because of suicidal thoughts. The patient was diagnosed with COVID 19 infection in the hospital. His was suffering from COVID initially. The patient was thinking of hanging himself, but he did not do it because he was afraid. The patient has a long history of mental illness. He was admitted to [facility] twice in July. He has a history of psychosis, delusions and hallucinations. The patient has also been diagnosed with obsessive compulsive disorder, bipolar disorder and posttraumatic stress disorder. Currently, he is cooperative. He is in isolation room. Pt continues to have some delusions . Talks about astronomy , dooms day which is of recent onset few months duration.and Zyprexa has not helped him.Denies any side effect from medications PT still depressed,and delusional.PT C/O RT SHOULDER PAIN and neck pain, R/O dystonic reaction Pain not relieved by cogentin. Will call medical consult. MENTAL STATUS EXAMINATION: Causally dressed, cooperative, made good eye contact. Psychomotor activity is normal. Mood is mildly depressed. Effect is anxious. Denies suicidal or homicidal ideas. However, he admitted to have some sporadic auditory hallucinations. Insight and judgment are fair. DIAGNOSIS: 1. Mood disorder, rule out bipolar I disorder with psychotic features. 2. Obsessive compulsive disorder. 3. Posttraumatic stress disorder. 4. Cannabis use disorder PLAN: . Increase his sertraline to 200 mg once daily and continue Depakote 250 mg twice a day. Continue Risperdal 2mg HS, and titrate, D/C Zyprexa D/C Cogentin 1mg bid. Laboratory: Complete blood count (CBC) is within normal limits. Comprehensive metabolic panel (CMP) within normal limits. Toxicology is positive for cannabis. Estimated length of stay 4 to 5 days. Time spent on the patient is 25 minutes. Vital Signs Vital Signs Date Time Temp Pulse Resp B/P (MAP) Pulse Ox O2 Delivery O2 Flow Rate FiO2 12/10/20 16:35 98.9 84 18 130/88 (102) 12/10/20 08:34 Room Air 12/09/20 16:51 95 Current Medications Current Medications Medications (Trade) Dose Ordered Sig/[place]wood Route PRN Reason Start Time Stop Time Status Last Admin Dose Admin Acetaminophen (Tylenol Tab) 650 mg Q6HP PRN PO HEADACHE or DISCOMFORT 12/03/20 17:35 12/10/20 16:17 Al Hydrox/Mg Hydrox/Simethicone (Mylanta) 30 ml Q4HP PRN PO HEARTBURN/INDIGESTION 12/03/20 17:35 Benztropine Mesylate (Cogentin) 1 mg BID PO 12/09/20 21:00 12/10/20 09:27 Divalproex Sodium (Depakote) 250 mg BID PO 12/05/20 21:00 12/09/20 13:46 DC 12/09/20 08:13 Divalproex Sodium (Depakote) 250 mg DAILY PO 12/03/20 09:00 12/03/20 17:41 DC 12/03/20 08:58 Divalproex Sodium (Depakote) 250 mg DAILY PO 12/04/20 09:00 12/05/20 12:47 DC 12/05/20 09:11 Divalproex Sodium (Depakote) 250 mg TID PO 12/09/20 16:00 12/10/20 16:17 Home Med (Med Rec Complete!) ASDIRECTED XX 12/02/20 21:00 12/02/20 20:59 DC Hydroxyzine HCl (Atarax) 25 mg BID PRN PO ANXIETY/AGITATION 12/03/20 17:35 12/09/20 21:18 Hydroxyzine HCl (Atarax) 25 mg BIDP PRN PO ANXIETY/AGITATION 12/03/20 17:35 12/03/20 17:47 DC Magnesium Hydroxide (Milk Of Magnesia) 30 ml DAILYPRN PRN PO CONSTIPATION 12/03/20 17:35 Miscellaneous (Unresolved Clarification Entry) SEE LABEL COMMENTS DAILY XX 12/08/20 09:00 12/08/20 16:32 DC Olanzapine (ZyPREXA) 10 mg BID PO 12/03/20 09:00 12/03/20 17:41 DC 12/03/20 08:57 Olanzapine (ZyPREXA) 10 mg BID PO 12/03/20 21:00 12/05/20 13:54 DC 12/05/20 09:11 Olanzapine (ZyPREXA) 10 mg QAM PO 12/06/20 09:00 12/10/20 09:27 Olanzapine (ZyPREXA) 15 mg QHS PO 12/05/20 21:00 12/06/20 14:22 DC 12/05/20 21:17 Pregabalin (Lyrica) 200 mg TID PO 12/03/20 09:00 12/03/20 17:41 DC 12/03/20 08:57 Pregabalin (Lyrica) 200 mg TID PO 12/03/20 21:00 12/10/20 16:17 Risperidone (RisperDAL) 1 mg QHS PO 12/06/20 21:00 12/07/20 12:15 DC 12/06/20 22:36 Risperidone (RisperDAL) 2 mg QHS PO 12/07/20 21:00 12/09/20 21:18 Sertraline HCl (Zoloft) 100 mg DAILY PO 12/03/20 09:00 12/03/20 17:41 DC 12/03/20 08:57 Sertraline HCl (Zoloft) 100 mg DAILY PO 12/04/20 09:00 12/05/20 12:49 DC 12/05/20 09:11 Sertraline HCl (Zoloft) 150 mg DAILY PO 12/06/20 09:00 12/08/20 16:27 DC 12/08/20 08:50 Sertraline HCl (Zoloft) 200 mg DAILY PO 12/09/20 09:00 12/10/20 12:12 DC 12/10/20 09:27 Sertraline HCl (Zoloft) 200 mg DAILY PO 12/11/20 09:00 Trazodone HCl (Desyrel) 100 mg QHS PRN PO SLEEP 12/03/20 17:35 12/09/20 21:18 Trazodone HCl (Desyrel) 100 mg QHSP PRN PO INSOMNIA 12/03/20 17:35 12/03/20 17:47 DC Vitamin D (Vitamin D) 1,000 units DAILY PO 12/04/20 09:00 12/10/20 09:27 Allergies Coded Allergies: minocycline (Verified Adverse Reaction, Unknown, worsening joint pain, 3/12/21) PATRICIA GONZALEZ MD Dec 10, 2020 16:44
[2020-12-10] MEDS: risperiDONE 2 MG TAB PO SCH (20:34)
[2020-12-10] MEDS: traZODone 100 MG TAB PO PRN (20:34)
[2020-12-11] MEDS: VITAMIN D 1,000 INTERNATIONAL UNITS TABLET PO SCH (09:05)
[2020-12-11] MEDS: DIVALPROEX 250 MG TAB PO SCH ×3 (09:05→21:38)
[2020-12-11] MEDS: OLANZapine 10 MG TAB PO SCH (09:06)
[2020-12-11] MEDS: SERTRALINE 100 MG TAB PO SCH (09:06)
[2020-12-11] MEDS: PREGABALIN 100 MG CAP (LYRICA) PO SCH ×3 (09:06→21:38)
--- NOTE | 2020-12-11 12:38 | MHIPNPDOC ---
[facility] Progress Note Progress Note DATE OF SERVICE: 12/11/20 SUBJECTIVE: I am fine, my intrusive thoughts are more ,continues to have some delusions of time and space. Reports thoughts about time and space have been always there. Wants to be discharged. I have pain in my back.My intrusive thoughts are less. OBJECTIVE: 40-year-old man living with his and children was admitted because of suicidal thoughts. The patient was diagnosed with COVID 19 infection in the hospital. His was suffering from COVID initially. The patient was thinking of hanging himself, but he did not do it because he was afraid. The patient has a long history of mental illness. He was admitted to [facility] twice in July. He has a history of psychosis, delusions and hallucinations. The patient has also been diagnosed with obsessive compulsive disorder, bipolar disorder and posttraumatic stress disorder. Currently, he is cooperative. He is in isolation room. Pt continues to have some delusions . Talks about astronomy , dooms day which is of recent onset few months duration.and Zyprexa has not helped him.Denies any side effect from medications PT still depressed,and delusional.PT C/O RT SHOULDER PAIN and neck pain, R/O dystonic reaction Pain not relieved by cogentin. Will call medical consult. MENTAL STATUS EXAMINATION: Causally dressed, cooperative, made good eye contact. Psychomotor activity is normal. Mood is mildly depressed. Effect is anxious. Denies suicidal or homicidal ideas. However, he admitted to have some sporadic auditory hallucinations. Insight and judgment are fair. DIAGNOSIS: 1. Mood disorder, rule out bipolar I disorder with psychotic features. 2. Obsessive compulsive disorder. 3. Posttraumatic stress disorder. 4. Cannabis use disorder PLAN: . Increase his sertraline to 200 mg once daily and continue Depakote 250 mg twice a day. Continue Risperdal 2mg HS, and titrate, D/C Zyprexa D/C Cogentin 1mg bid. Laboratory: Complete blood count (CBC) is within normal limits. Comprehensive metabolic panel (CMP) within normal limits. Toxicology is positive for cannabis. Estimated length of stay 4 to 5 days. Time spent on the patient is 25 minutes. Vital Signs Vital Signs Date Time Temp Pulse Resp B/P (MAP) Pulse Ox O2 Delivery O2 Flow Rate FiO2 12/11/20 10:49 Room Air 12/10/20 16:35 98.9 84 18 130/88 (102) 12/09/20 16:51 95 Current Medications Current Medications Medications (Trade) Dose Ordered Sig/[place] Route PRN Reason Start Time Stop Time Status Last Admin Dose Admin Acetaminophen (Tylenol Tab) 650 mg Q6HP PRN PO HEADACHE or DISCOMFORT 12/03/20 17:35 12/10/20 16:17 Al Hydrox/Mg Hydrox/Simethicone (Mylanta) 30 ml Q4HP PRN PO HEARTBURN/INDIGESTION 12/03/20 17:35 Benztropine Mesylate (Cogentin) 1 mg BID PO 12/09/20 21:00 12/10/20 16:45 DC 12/10/20 09:27 Divalproex Sodium (Depakote) 250 mg BID PO 12/05/20 21:00 12/09/20 13:46 DC 12/09/20 08:13 Divalproex Sodium (Depakote) 250 mg DAILY PO 12/03/20 09:00 12/03/20 17:41 DC 12/03/20 08:58 Divalproex Sodium (Depakote) 250 mg DAILY PO 12/04/20 09:00 12/05/20 12:47 DC 12/05/20 09:11 Divalproex Sodium (Depakote) 250 mg TID PO 12/09/20 16:00 12/11/20 09:05 Home Med (Med Rec Complete!) ASDIRECTED XX 12/02/20 21:00 12/02/20 20:59 DC Hydroxyzine HCl (Atarax) 25 mg BID PRN PO ANXIETY/AGITATION 12/03/20 17:35 12/09/20 21:18 Hydroxyzine HCl (Atarax) 25 mg BIDP PRN PO ANXIETY/AGITATION 12/03/20 17:35 12/03/20 17:47 DC Magnesium Hydroxide (Milk Of Magnesia) 30 ml DAILYPRN PRN PO CONSTIPATION 12/03/20 17:35 Miscellaneous (Unresolved Clarification Entry) SEE LABEL COMMENTS DAILY XX 12/08/20 09:00 12/08/20 16:32 DC Olanzapine (ZyPREXA) 10 mg BID PO 12/03/20 09:00 12/03/20 17:41 DC 12/03/20 08:57 Olanzapine (ZyPREXA) 10 mg BID PO 12/03/20 21:00 12/05/20 13:54 DC 12/05/20 09:11 Olanzapine (ZyPREXA) 10 mg QAM PO 12/06/20 09:00 12/11/20 09:06 Olanzapine (ZyPREXA) 15 mg QHS PO 12/05/20 21:00 12/06/20 14:22 DC 12/05/20 21:17 Pregabalin (Lyrica) 200 mg TID PO 12/03/20 09:00 12/03/20 17:41 DC 12/03/20 08:57 Pregabalin (Lyrica) 200 mg TID PO 12/03/20 21:00 12/11/20 09:06 Risperidone (RisperDAL) 1 mg QHS PO 12/06/20 21:00 12/07/20 12:15 DC 12/06/20 22:36 Risperidone (RisperDAL) 2 mg QHS PO 12/07/20 21:00 12/10/20 20:34 Sertraline HCl (Zoloft) 100 mg DAILY PO 12/03/20 09:00 12/03/20 17:41 DC 12/03/20 08:57 Sertraline HCl (Zoloft) 100 mg DAILY PO 12/04/20 09:00 12/05/20 12:49 DC 12/05/20 09:11 Sertraline HCl (Zoloft) 150 mg DAILY PO 12/06/20 09:00 12/08/20 16:27 DC 12/08/20 08:50 Sertraline HCl (Zoloft) 200 mg DAILY PO 12/09/20 09:00 12/10/20 12:12 DC 12/10/20 09:27 Sertraline HCl (Zoloft) 200 mg DAILY PO 12/11/20 09:00 12/11/20 09:06 Trazodone HCl (Desyrel) 100 mg QHS PRN PO SLEEP 12/03/20 17:35 12/10/20 20:34 Trazodone HCl (Desyrel) 100 mg QHSP PRN PO INSOMNIA 12/03/20 17:35 12/03/20 17:47 DC Vitamin D (Vitamin D) 1,000 units DAILY PO 12/04/20 09:00 12/11/20 09:05 Allergies Coded Allergies: minocycline (Verified Adverse Reaction, Unknown, worsening joint pain, 11/07/20) PATRICIA GONZALEZ MD Dec 11, 2020 12:38
[2020-12-11 16:55] VITALS: BP 134/81
[2020-12-11] MEDS: traZODone 100 MG TAB PO PRN (21:38)
[2020-12-11] MEDS: risperiDONE 2 MG TAB PO SCH (21:38)
[2020-12-11] MEDS: IBUPROFEN 600MG TAB PO PRN (22:12)
[2020-12-12 06:24] VITALS: BP 118/92
[2020-12-12] MEDS: SERTRALINE 100 MG TAB PO SCH (08:13)
[2020-12-12] MEDS: OLANZapine 10 MG TAB PO SCH (08:13)
[2020-12-12] MEDS: PREGABALIN 100 MG CAP (LYRICA) PO SCH (08:13)
[2020-12-12] MEDS: VITAMIN D 1,000 INTERNATIONAL UNITS TABLET PO SCH (08:13)
[2020-12-12] MEDS: IBUPROFEN 600MG TAB PO PRN (08:13)
[2020-12-12] MEDS: DIVALPROEX 250 MG TAB PO SCH (08:14)
[2020-12-12] MEDS ORDERED: DEPA250T32 PO (09:00)
[2020-12-12] MEDS ORDERED: OLAN10TA2 PO (09:00)
[2020-12-12] MEDS ORDERED: ZOLO100T PO (09:00)
[2020-12-12] MEDS ORDERED: RISP-9 PO (09:00)
--- NOTE | 2020-12-12 11:11 | MHDS ---
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 Patient had thoughts of hanging himself. HISTORY OF PRESENT ILLNESS/PAST PSYCHIATRIC HISTORY/PERSONAL HISTORY/MEDICAL HISTORY/SOCIAL HISTORY: For details, please refer to the initial evaluation. COURSE IN THE HOSPITAL: Patient initially was depressed and he had some delusions of magical thinking regarding time and space. He also had complaints of some auditory hallucinations, some hissing noise, He was treated for his delusions in the past, but they have never gone away. Patient was placed on Depakote, Risperidone and Sertraline, and gradually these were titrated upwards. Patient made some recovery. He was not having suicidal thoughts. He was not depressed, however, his delusions which were minimally present even that hissing sound he had was not completely resolved. However, the patient wants to go home. Currently he is not suicidal or homicidal. His sleep is good. His appetite is good. He could be discharged home with follow-up at [facility]. MENTAL STATUS EXAMINATION: A casually dressed, well groomed adult. Cooperative. Made good eye contact. Mood is euthymic. Affect is appropriate for mood. Thought process linear, goal directed. Thought content; denied suicidal/homicidal ideas. Patient continues to have some residual delusions. Perception; some auditory hallucinations, a hissing sound persisted. Memory immediate, remote, recent are good. Insight and judgment are good. LABS: CBC within normal limits. CMP within normal limits. TOXICOLOGY: He was positive for cannabis. DISCHARGE MEDICATIONS: 1. Risperidone 2 mg at night. 2. Olanzapine 10 mg in the a.m. 3. Depakote 250 mg t.i.d. 4. Sertraline 200 mg at night. PLAN: The plan is to slowly taper off Olanzapine and titrate the Risperidone upwards. He will be discharged to [facility].
== END 2020-12-12 12:28 | disposition home or self-care (01) | DRG 885 ==
LOC: M ED 14:49 → M ED INP 12-03 17:32 → M PSY 12-03 20:47
PROVIDERS: ADMIT Psychiatry & Neurology Psychiatry; ATTEND Psychiatry & Neurology Psychiatry
DX: F31.2 Bipolar disorder, current episode manic severe with psychotic features (principal); U07.1 COVID-19; R45.851 Suicidal ideations; M54.9 Dorsalgia, unspecified; G89.29 Other chronic pain; F12.10 Cannabis abuse, uncomplicated; F43.10 Post-traumatic stress disorder, unspecified; F42.9 Obsessive-compulsive disorder, unspecified; F41.9 Anxiety disorder, unspecified; Z90.49 Acquired absence of other specified parts of digestive tract; Z56.0 Unemployment, unspecified; Z79.899 Other long term (current) drug therapy; Z88.1 Allergy status to other antibiotic agents